=== PATIENT | female | born 1975 ===

== ENCOUNTER 2017-08-02 16:02 | Emergency (ER) | payer OTHER ==
[2017-08-02 16:09] VITALS: TEMP 98.4; O2SAT 100
--- NOTE | 2017-08-02 16:35 | ED PDOC ---
HPI: Headache Time Seen by Provider: 08/02/17 16:12 Chief Complaint (Nursing): Headache Chief Complaint (Provider): Headache History Per: Patient History/Exam Limitations: no limitations Additional Complaint(s): Patient reports pain to the left occipital aspect of her scalp for 1 week. States she also noticed a bump there on Wednesday, prompting her to come in for evaluation. No other associated symptoms. Otherwise: (-) trauma, (-) injury, (- ) recent illness, (-) dizziness, (-) worse headache of life, (-) nausea, (-) vomiting, (-) photophobia, (-) URI symptoms, (-) fever, (-) neck pain, (-) back pain, (-) CP, (-) SOB, (-) subjective neurologic symptoms. PMD: None Past Medical History Reviewed: Historical Data, Nursing Documentation, Vital Signs Vital Signs: Last Vital Signs Temp 98.4 F 08/02/17 16:07 Pulse 67 08/02/17 16:07 Resp 19 08/02/17 16:07 BP 124/77 08/02/17 16:07 Pulse Ox 100 08/02/17 16:07 - Medical History PMH: No Chronic Diseases - Family History Family History: States: Unknown Family Hx - Allergies Allergies/Adverse Reactions: Allergies Allergy/AdvReac Type Severity Reaction Status Date / Time No Known Allergies Allergy Verified 08/02/17 16:06 Review of Systems ROS Statement: Except As Marked, All Systems Reviewed And Found Negative Constitutional: Negative for: Fever, Chills ENT: Negative for: Nose Congestion Respiratory: Negative for: Cough Gastrointestinal: Negative for: Nausea, Vomiting Neurological: Positive for: Headache. Negative for: Weakness, Numbness, Other ( photophobia) Physical Exam - Reviewed Nursing Documentation Reviewed: Yes Vital Signs Reviewed: Yes - Physical Exam Comments: GENERAL APPEARANCE: Patient is awake, alert, oriented x 3, in no acute distress. SKIN: Warm, dry; (-) cyanosis; (-) rash. HEAD: (-) scalp swelling or tenderness,. EYES: (-) conjunctival pallor, (-) scleral icterus. ENMT: (-) sinus tenderness; mucous membranes are moist. NECK: (-) tenderness, (-) stiffness, (-) meningismus, (+) multiple cervical lymphadenopathy, two to the left posterior auricular area and two to the right posterior cervical area. CHEST AND RESPIRATORY: (-) rales, (-) rhonchi, (-) wheezes; breath sounds equal bilaterally. HEART AND CARDIOVASCULAR: (-) irregularity; (-) murmur, (-) gallop. ABDOMEN AND GI: Soft; (-) tenderness. EXTREMITIES: (-) deformity. NEURO AND PSYCH: Mental status as above. 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 Strength symmetric. - Laboratory Results Result Diagrams: 08/02/17 18:00 08/02/17 18:00 - ECG O2 Sat by Pulse Oximetry: 100 (RA) Pulse Ox Interpretation: Normal Medical Decision Making Medical Decision Making: Considering multiple tender and enlarged lymph nodes, will order routine labs. Time: 16:28 Initial Plan: --CMP --CBC --Toradol 30 mg IVP --Reevaluation Labs reviewed, patient noted to be anemic. No prior labs available for comparison. Patient notified of results. She denies any history of anemia, GI bleeding, dark stools, dizziness, or SOB. She admits to feeling fatigued lately. Patient advised to follow up with the clinic regarding low hemoglobin for further evaluation and treatment. Rectal exam performed by JIMENA, noted brown stool, guiac (-). Stool for occult blood sent to lab. Advised to follow up with the clinic in 1-2 days without fail. Return to the emergency room at any time for any new or worsening symptoms. Patient states she fully agrees with and understands discharge instructions. States that she agrees with the plan and disposition. Verbalized and repeated discharge instructions and plan. I have given the patient opportunity to ask any additional questions. Scribe Attestation: Documented by Dorene Fletcher, acting as a scribe for Rubi Posadas PA-C. Provider Scribe Attestation: All medical record entries made by the Scribe were at my direction and personally dictated by me. I have reviewed the chart and agree that the record accurately reflects my personal performance of the history, physical exam, medical decision making, and the department course for this patient. I have also personally directed, reviewed, and agree with the discharge instructions and disposition. Disposition - Clinical Impression Clinical Impression: Lymphadenopathy, cervical, Anemia - Patient ED Disposition Is Patient to be Admitted: No Counseled Patient/Family Regarding: Studies Performed, Diagnosis, Need For Followup - Disposition Disposition: Routine/Home Disposition Time: 19:00 Condition: STABLE Additional Instructions: Thank you for letting us take care of you today. You were treated for lymphadenopathy, anemia. The emergency medical care you received today was directed at your acute symptoms. It was found in your blood work that you are the neck please follow this up without fail with a primary care doctor or the clinic. Return to the Emergency Department if your symptoms worsen, do not improve, or if you have any other problems. Please contact your doctor in 2 days for re-evaluation and follow up / or call one of the physicians/clinics you have been referred to that are listed on the Patient Visit Information form that is included in your discharge packet. Bring any paperwork you were given at discharge with you along with any medications you are taking to your follow up visit. Our treatment cannot replace ongoing medical care by a primary care provider (PCP) outside of the emergency department. Thank you for allowing the [facility] team to be part of your care today. 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
[2017-08-02 18:09] LABS: BASO # 0.1 K/uL (0.0-0.2); BASO % 1.2 % (0.0-2.0); EOS # 0.2 K/uL (0.0-0.7); EOS % 2.1 % (0.0-4.0); HEMOGLOBIN 8.1 g/dL (12.0-16.0); LYMPH # 2.4 K/uL (1.0-4.3); LYMPH % 26.2 % (20.0-40.0); MEAN CELL VOLUME 67.5 fl (81.0-99.0); MEAN CORPUSCULAR HEMOGLOBIN 20.9 pg (27.0-31.0); MEAN PLATELET VOLUME 9.1 fl (7.2-11.7); MONO # 0.9 K/uL (0.0-0.8); MONO % 9.6 % (0.0-10.0); NEUT # 5.5 K/uL (1.8-7.0); NEUT % 60.9 % (50.0-75.0); RBC 3.88 Mil/uL (3.80-5.20); RED CELL DISTRIBUTION WIDTH 18.3 % (11.5-14.5)
[2017-08-02 18:19] LABS: ALB/GLOB RATIO 1.1 (1.0-2.1); ALT/SGPT 37 U/L (9-52); AST/SGOT 30 U/L (14-36); BLOOD UREA NITROGEN 10 mg/dl (7-17); CALCIUM 9.4 mg/dL (8.4-10.2); GFR AFRICAN-AMERICAN > 60; GFR NON-AFRICAN AMERICAN > 60
[2017-08-02 19:36] VITALS: BP 120/66; PULSE 55; RESP 18
== END 2017-08-02 19:40 | disposition home or self-care (01) ==
LOC: H.ER 16:02
DX: R59.1 Generalized enlarged lymph nodes (principal); D64.9 Anemia, unspecified
CPT/HCPCS: 80053; 81025; 85025; 96374; 99285; J1885